=== PATIENT | male | born 1965 | race Caucasian/White ===

== ENCOUNTER 2017-10-31 13:20 | Emergency (ER) | payer SELFPAY ==
[~2017-10-31] VITALS: Ht 188 cm; Wt 90.9 kg
[~2017-10-31 13:20] MED LIST: OXYC5 PO; PENT400 PO; PROP10TA26 PO
[2017-10-31 13:21] VITALS: BP 159/80; PULSE 65; RESP 16; TEMP 98.8; O2SAT 100
[2017-10-31 14:20] LABS: AUTOMATED NEUTROPHIL # 6.3 TH/MM3 (1.8-7.7); BASOPHIL % 0.5 % (0.0-2.0); EOSINOPHIL # 0.2 TH/MM3 (0-0.4); EOSINOPHIL % 2.6 % (0.0-4.0); HEMATOCRIT 34.4 % (39.0-51.0); HEMOGLOBIN 11.2 GM/DL (13.0-17.0); LYMPH % 19.2 % (9.0-44.0); LYMPHOCYTE # 1.8 TH/MM3 (1.0-4.8); MEAN CELL VOLUME 86.3 FL (80.0-100.0); MEAN CORPUSCULAR HEMOGLOBIN 28.2 PG (27.0-34.0); MEAN CORPUSCULAR HGB CONC 32.7 % (32.0-36.0); MEAN PLATELET VOLUME 7.7 FL (7.0-11.0); MONO % 9.9 % (0.0-8.0); MONOCYTE # 0.9 TH/MM3 (0-0.9); NEUT % 67.8 % (16.0-70.0); PLATELET COUNT 137 TH/MM3 (150-450); RED BLOOD COUNT 3.98 MIL/MM3 (4.50-5.90); RED CELL DISTRIBUTION WIDTH 21.4 % (11.6-17.2); WHITE BLOOD COUNT 9.2 TH/MM3 (4.0-11.0)
[2017-10-31 14:36] LABS: ALBUMIN 3.2 GM/DL (3.4-5.0); AST (GOT) 47 U/L (15-37); BICARBONATE 24.1 MEQ/L (21.0-32.0); BLOOD UREA NITROGEN 15 MG/DL (7-18); CALCIUM 8.4 MG/DL (8.5-10.1); CHLORIDE 106 MEQ/L (98-107); CREATININE 0.81 MG/DL (0.60-1.30); GLOMERULAR FILTRATION RATE 101 ML/MIN (>89); GLUCOSE,RANDOM 89 MG/DL (74-106); SODIUM (NA) 137 MEQ/L (136-145)
[2017-10-31 14:37] LABS: ALT (GPT) 31 U/L (12-78)
[2017-10-31 14:40] LABS: ALKALINE PHOSPHATASE 112 U/L (45-117); TOTAL BILIRUBIN ADULT 0.9 MG/DL (0.2-1.0); TOTAL PROTEIN 7.1 GM/DL (6.4-8.2)
--- NOTE | 2017-10-31 15:16 | PD ---
Physical Exam Date Seen by Provider: Oct 31, 2017 Time Seen by Provider: 13:32 Narrative 52 year old male presents to the emergency department voluntarily for psychiatric evaluation. Patient states that his sister thinks he is disconnected from reality. He states he isn't sleeping well. Patient reports feeling sad, but denies suicidal ideation. Data Data Last Documented VS Vital Signs Date Time Temp Pulse Resp B/P (MAP) Pulse Ox O2 Delivery O2 Flow Rate FiO2 10/31/17 13:21 98.8 65 16 159/80 (106) 100 Room Air Orders Orders Complete Blood Count With Diff (10/31/17 13:35) Comprehensive Metabolic Panel (10/31/17 13:35) Drug Screen, Random Urine (10/31/17 13:35) Alcohol (Ethanol) (10/31/17 13:35) Labs Laboratory Tests Test 10/31/17 13:45 10/31/17 13:48 Urine Opiates Screen NEG Urine Barbiturates Screen NEG Urine Amphetamines Screen NEG Urine Benzodiazepines Screen NEG Urine Cocaine Screen NEG Urine Cannabinoids Screen NEG White Blood Count 9.2 TH/MM3 Red Blood Count 3.98 MIL/MM3 Hemoglobin 11.2 GM/DL Hematocrit 34.4 % Mean Corpuscular Volume 86.3 FL Mean Corpuscular Hemoglobin 28.2 PG Mean Corpuscular Hemoglobin Concent 32.7 % Red Cell Distribution Width 21.4 % Platelet Count 137 TH/MM3 Mean Platelet Volume 7.7 FL Neutrophils (%) (Auto) 67.8 % Lymphocytes (%) (Auto) 19.2 % Monocytes (%) (Auto) 9.9 % Eosinophils (%) (Auto) 2.6 % Basophils (%) (Auto) 0.5 % Neutrophils # (Auto) 6.3 TH/MM3 Lymphocytes # (Auto) 1.8 TH/MM3 Monocytes # (Auto) 0.9 TH/MM3 Eosinophils # (Auto) 0.2 TH/MM3 Basophils # (Auto) 0.0 TH/MM3 CBC Comment DIFF FINAL Differential Comment Blood Urea Nitrogen 15 MG/DL Creatinine 0.81 MG/DL Random Glucose 89 MG/DL Total Protein 7.1 GM/DL Albumin 3.2 GM/DL Calcium Level 8.4 MG/DL Alkaline Phosphatase 112 U/L Aspartate Amino Transf (AST/SGOT) 47 U/L Alanine Aminotransferase (ALT/SGPT) 31 U/L Total Bilirubin 0.9 MG/DL Sodium Level 137 MEQ/L Potassium Level 4.6 MEQ/L Chloride Level 106 MEQ/L Carbon Dioxide Level 24.1 MEQ/L Anion Gap 7 MEQ/L Estimat Glomerular Filtration Rate 101 ML/MIN Ethyl Alcohol Level LESS THAN 3 MG/DL MDM Supervised Visit with ARTURO: No Narrative Course 52 year old male presents to the emergency department voluntarily for psychiatric evaluation. Work up is initiated in triage. Patient is awaiting medical bed for further evaluation and disposition. Before patient could be placed in a medical bed, he left AMA. Diagnosis Primary Impression: Left against medical advice Additional Impression: Psychiatric complaint Disposition: 07 AGAINST MEDICAL ADVICE Chey Hurley Oct 31, 2017 15:16
[2017-11-01] MEDS ORDERED: MECL-62 PO (17:56)
== END 2017-10-31 15:55 | disposition left against medical advice (07) ==
LOC: NETRI 13:20
DX: F99 Mental disorder, not otherwise specified (principal)
CPT/HCPCS: 80053; 80307; 85025; 99283

== ENCOUNTER 2017-11-01 11:31 | Emergency (ER) | payer SELFPAY ==
[2017-11-01 11:32] VITALS: BP 160/72; PULSE 60; RESP 20; TEMP 98; O2SAT 100
[2017-11-01 12:00] VITALS: BP 149/70; PULSE 54; RESP 18; TEMP 97.7; O2SAT 100
[2017-11-01] MEDS ORDERED: MECL-62 PO (17:56)
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
[2017-11-01 18:07] VITALS: BP 162/72; PULSE 64; RESP 18; O2SAT 100
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
== END 2017-11-01 18:56 | disposition home or self-care (01) ==
LOC: NEPJ 11:31
DX: F43.20 Adjustment disorder, unspecified (principal); R42 Dizziness and giddiness; E11.9 Type 2 diabetes mellitus without complications; K21.9 Gastro-esophageal reflux disease without esophagitis; F17.200 Nicotine dependence, unspecified, uncomplicated; Z79.891 Long term (current) use of opiate analgesic; Z79.899 Other long term (current) drug therapy
CPT/HCPCS: 80307; 99283